=== PATIENT | male | born 1960 | race Caucasian/White ===

== ENCOUNTER → 2017-05-02 | Outpatient (CLI) | payer OTHER ==
[~2017-05-02] MED LIST: ASPIR 8181 MG PO; CHOLESTEROL MED
== END ==
LOC: MRI 08:45
DX: S83.241A Other tear of medial meniscus, current injury, right knee, initial encounter (principal); M22.41 Chondromalacia patellae, right knee; M17.12 Unilateral primary osteoarthritis, left knee; X58.XXXA Exposure to other specified factors, initial encounter; Y93.89 Activity, other specified; Y92.89 Other specified places as the place of occurrence of the external cause; Y99.8 Other external cause status

== ENCOUNTER → 2017-05-14 | Outpatient (CLI) | payer OTHER | LOC: CAT 05:54 | DX: Z13.6 Encounter for screening for cardiovascular disorders (principal) ==

== ENCOUNTER 2017-08-14 23:03 | Emergency (ER) | payer OTHER ==
[~2017-08-14] VITALS: Ht 170.2 cm; Wt 93.0 kg
[2017-08-14 23:25] VITALS: BP 149/95
[2017-08-14] MEDS ORDERED: ASPIR 8181 MG PO (23:32)
[2017-08-14] MEDS ORDERED: CHOLESTEROL MED (23:33)
== END 2017-08-15 00:22 | disposition home or self-care (01) ==
LOC: ER 23:03
DX: S61.215A Laceration without foreign body of left ring finger without damage to nail, initial encounter (principal); W26.9XXA Contact with unspecified sharp object(s), initial encounter; Y93.89 Activity, other specified; Y92.89 Other specified places as the place of occurrence of the external cause; Y99.8 Other external cause status

== ENCOUNTER → 2020-09-10 | Outpatient (CLI) | payer OTHER ==
[~2020-09-10] VITALS: Ht 170.2 cm; Wt 100.7 kg
[~2020-09-10] MED LIST changes: +ASPIRIN EC81 M1 PO; +MULTI VITAMIN1 EACH PO
--- NOTE | ~2020-09-10 | P ---
[facility] [place] [address] PROCEDURE REPORT Name: SAGRARIO THOMASON [facility] #: [facility] [id number] Admission: 09/10/20 Attend Phys: Romeo Arias Discharge: Date of : 58 Report #: [id number] THIS REPORT FOR: cc: Sae Quiros MD, Neal A. MD McElhinney, Christian C. MD ~ cc: Sae Quiros MD DATE OF SERVICE: 09/10/2020 PROCEDURE PERFORMED: Colonoscopy. HISTORY OF PRESENT ILLNESS: The patient is a 59-year-old male with a recent history of iron deficiency and possible anemia. He denies any obvious bright red blood per rectum or melena. Upper endoscopy was just performed showing mild gastritis. No evidence of bleeding. Last colonoscopy was approximately 9 years ago showing diverticulosis, otherwise normal. No family history of colon cancer. DESCRIPTION OF PROCEDURE: The risks and benefits of the procedure were explained to the patient, those risks including but not limited to bleeding, perforation and the risk of sedation. He understood these risks and gave informed consent. Sedation was given using propofol per Anesthesia. Next, a digital rectal exam was initially performed, which was normal. Next, using a standard Olympus colonoscope, the scope was placed in the patient's anus and advanced under direct vision to the cecum. The overall prep was excellent. Cecum and ileocecal valve were normal in appearance. Ascending colon was normal. Scattered diverticula were noted throughout the transverse, descending and sigmoid colon. No evidence of inflammation, otherwise normal. The rectal mucosa was normal. On retroflexion, no abnormalities were noted. The scope was then withdrawn and the procedure terminated. The patient tolerated the procedure well. IMPRESSION: 1. Diverticulosis. 2. Otherwise, normal colonoscopy. RECOMMENDATIONS: 1. Repeat colonoscopy in 10 years. 2. Await biopsies to rule out celiac disease. 3. If biopsies are negative, consider Hemoccult testing stools and monitoring hemoglobin at that point. [address] [address] PROCEDURE REPORT Name: PADDYSAGRARIOMAJO GARRIDO Room #: REG NAYE Finnegan#: [id number] Admission: 09/10/20 Attend Phys: Romeo Arias Discharge: Date of : 58 Report #: [id number] Thank you for allowing me to participate in his care. By: 0759 1221 Romeo Brooks MD /nt
--- NOTE | 2020-09-10 16:55 | P ---
[facility] [place] [address] PROCEDURE REPORT Name: SAGRARIO THOMASON [facility] #: [id number] Admission: 09/10/20 Attend Phys: Romeo Arias Discharge: Date of : 58 Report #: [id number] THIS REPORT FOR: cc: Sae Quiros MD, Neal A. MD McElhinney, Christian C. MD ~ cc: Sae Quiros MD DATE OF SERVICE: 09/10/2020 PROCEDURE PERFORMED: Upper endoscopy with biopsies. HISTORY OF PRESENT ILLNESS: The patient is a 59-year-old male reportedly with a history of iron deficiency and possible anemia. He denies any obvious bright red blood per rectum or melena. Last colonoscopy 9 years ago was essentially normal other than diverticulosis. He does take aspirin on a regular basis. Denies any nausea, vomiting, dysphagia or heartburn symptoms. Plan is for EGD and colonoscopy today. DESCRIPTION OF PROCEDURE: The risks and benefits of the procedure were explained to the patient, those risks including but not limited to bleeding, perforation and the risk of sedation. He understood these risks and gave informed consent. Sedation was given using propofol per anesthesia. Next, using a standard Olympus upper endoscope, the scope was placed in the patient's mouth and advanced under direct vision through the esophagus, stomach and into the second portion of the duodenum. The larynx was normal in appearance. The esophagus was normal throughout. The GE junction was normal. Overall, the gastric mucosa was normal. In the fundus and the body and the antrum, there was a small area of mild gastritis. No evidence of bleeding. Also noted was a submucosal mass that was approximately 1.5 cm in size. This was completely submucosal. The pylorus was normal and patent. The duodenal bulb, first and second portion were all normal. Random biopsies were obtained to rule out the possibility of celiac sprue. Gastric biopsies were also obtained to rule out the possibility of H. pylori. The scope was then withdrawn and the procedure terminated. The patient tolerated the procedure well. IMPRESSION: 1. Mild gastritis. No evidence of bleeding. 2. Submucosal mass in the gastric antrum, 1.5 cm. 3. Otherwise, normal upper endoscopy. RECOMMENDATIONS: 1. Await biopsy results. 2. We will proceed with colonoscopy next today. 3. We would recommend an endoscopic ultrasound routinely for further evaluation of submucosal antral mass. [address] [address] PROCEDURE REPORT Name: PADDYSAGRARIO WATERMANWAYNE Room #: [facility] [id number] Admission: 09/10/20 Attend Phys: Romeo Arias Discharge: Date of : 58 Report #: [id number] Thank you for allowing me to participate in his care. <ELECTRONICALLY SIGNED> By: Romeo Brooks MD 09/10/20 1655 0730 1220 Romeo Brooks MD /rusty
--- NOTE | 2020-09-14 15:08 | PATH ---
[facility] [place] [address] PATHOLOGY RPT PROCEDURE Name: JD ECHEVERRIA Room #: REG [facility] Sagar.#: [id number] Admission: 09/10/20 Date of : 58 Discharge: Report #: [id number] Path Case #: [id number] [facility] Accession Number: [id number] . 01 Material submitted: . PART A: duodenum - DUODENAL BIOPSY R/O SPRUE PART B: gastrointestinal site - GASTRITIS . 01 Clinical history: . EGD COLONOSCOPY . 02 Diagnosis: A. Small bowel mucosa, duodenum to rule out sprue, endoscopic biopsy: - Fragments of small bowel mucosa with no significant diagnostic abnormalities; negative for villous blunting or increase in intraepithelial lymphocytes. - One fragment of large intestine mucosa showing nonspecific reactive changes without any villi (please see comment). . B. Gastric mucosa, gastritis, endoscopic biopsy: - Helicobacter pylori-induced moderate to marked active gastritis with focal intestinal metaplasia. - Negative for atrophy or dysplasia. - Moderate number of Helicobacter pylori organisms identified on the properly controlled immunohistochemical stain. . (IUV:home health provider; 09/14/2020) MBR 09/14/2020 1058 Local . 02 Comment: A. One fragment examined within the "duodenum biopsy tissue" shows no villi present. The histological appearance resembles that of a large intestine mucosa. The provided history of EGD and colonoscopy is noted. It is likely that this represents a large intestine mucosal biopsy tissue showing nonspecific reactive changes. Please correlate clinically. (IUV:home health provider; 09/14/2020) . 02 Electronically signed: . Patricia Lind MD, Pathologist NPI- [id number] . 01 Gross description: . A. The specimen is submitted in formalin, labeled "Jd Echeverria, duodenal biopsy". Received are 4 segments of pale grubbs tissue ranging in size from 0.3 to 0.5 cm in maximum dimensions. The specimen is submitted [place] [address] PATHOLOGY RPT PROCEDURE Name: JD ECHEVERRIA HEMA Room #: REG [facility]#: [id number] Admission: 09/10/20 Date of : 58 Discharge: Report #: [id number] Path Case #: [id number] . B. The specimen is submitted in formalin, labeled "Jd Echeverria, gastritis". Received are 5 segments of pale grubbs tissue ranging in size from 0.2 to 0.4 cm in maximum dimensions. The specimen is submitted in cassette B1. ([facility]; 09/10/2020) NRI/NRI 09/10/2020 1720 Local . 02 Pathologist provided ICD-10: K29.60, B96.81 . 02 CPT . 944868, 903920, J42611 Specimen Comment: A courtesy copy of this report has been sent to [phone] Specimen Comment: Report sent to DR. RAMOS Performed at: [address], [place] [id number] MD Nathaniel Portillo MD Phone: [phone] Performed at: [address] [id number] MD Patricia Lind MD Phone: [phone]
== END | disposition home or self-care (01) ==
LOC: GI 09-03 11:03
PROVIDERS: ATTEND Specialist
DX: D50.9 Iron deficiency anemia, unspecified (principal); K57.30 Diverticulosis of large intestine without perforation or abscess without bleeding; K29.60 Other gastritis without bleeding; B96.81 Helicobacter pylori [H. pylori] as the cause of diseases classified elsewhere; Z98.890 Other specified postprocedural states; Z88.8 Allergy status to other drugs, medicaments and biological substances
CPT/HCPCS: 62110; 62900

== ENCOUNTER → 2021-01-11 | Outpatient (CLI) | payer OTHER | LOC: ULTRA 09:42 → CAT 09:42 | PROVIDERS: ATTEND Family Medicine | DX: M25.562 Pain in left knee (principal) ==